=== PATIENT | female | born 1945 | race Caucasian/White ===

== ENCOUNTER 2018-05-17 05:04 | Emergency (ER) | payer MEDICARE, OTHER ==
[2018-05-17] MEDS ORDERED: Acetaminophen 500 MG TAB ONE (05:33)
[2018-05-17] MEDS ORDERED: Ibuprofen 200 MG TAB ONE (05:33)
[2018-05-17 05:52] LABS: Clarity Cloudy (Clear)
[2018-05-17 05:53] LABS: Bilirubin Small (Negative); Blood, Urine Moderate (Negative); Glucose, Urine (Dipstick) Negative (Negative); Leukocyte Trace (Negative); Nitrite Negative (Negative); Protein, Urine (Dipstick) 100 mg/dL (Neg-Trace); Specific Gravity, Urine 1.015 (1.005-1.030)
[2018-05-17 05:59] LABS: Bacteria/HPF 3+ HPF (None Seen); Squamous Epithelial 0-3 HPF (0-3)
[2018-05-17 06:06] LABS: ALT (SGPT) 82 U/L (8-55); AST (SGOT) 45 U/L (5-34); Alkaline Phosphatase 68 U/L (40-150); Anion Gap 15 mmol/L (10-20); BUN (Urea Nitrogen) 14 mg/dL (9.8-20.1); Bilirubin, Total 0.8 mg/dL (0.2-1.2); Calc. Creatinine Clearance 0 mL/min (70-130); Calcium 9.2 mg/dL (7.8-10.44); Carbon Dioxide 26 mmol/L (23-31); Chloride 98 mmol/L (98-107); Estimated GFR-MDRD 70; Globulin 3.4 g/dL (2.4-3.5); Glucose 131 mg/dL (83-110); Lipase 37 U/L (8-78); Potassium 3.8 mmol/L (3.5-5.1); Protein, Total 7.4 g/dL (6.0-8.3); Sodium 135 mmol/L (136-145)
[2018-05-17 06:09] LABS: Hemoglobin 13.9 g/dL (12.0-16.0); Mean Corpuscular HGB CONC 32.9 g/dL (32.0-36.0); Mean Corpuscular Hemoglobin 31.1 pg (27.0-31.0); Mean Corpuscular Volume 94.4 fL (78.0-98.0); Mean Platelet Volume 7.2 fL (7.4-10.4); Platelet Count 186 thou/uL (130-400); RBC Distribution Width 12.8 % (11.5-14.5); Red Blood Cell (RBC) Count 4.47 mill/uL (4.20-5.40); White Blood Cell (WBC) Count 4.1 thou/uL (4.8-10.8)
[2018-05-17 06:13] LABS: Band 7 % (5-11); Eosinophils 1 % (0-10); Lymphocytes 15 % (21-51); MDiff Complete? YES; Monocytes 13 % (0-10); Neutrophil 64 % (42-75)
[2018-05-17 06:31] LABS: MONO NEGATIVE CONTROL ZONE White (Negative) (White); MONO POSITIVE CONTROL Pink Line (Positive) (PINK/RED); Mononucleosis NEGATIVE (NEGATIVE)
[2018-05-17] MEDS ORDERED: Ondansetron ODT 4 MG TAB ONE (07:35)
[2018-05-17] MEDS ORDERED: Nitrofurantoin Monohyd/M-Cryst 100 MG CAP ONE (07:50)
--- NOTE | 2018-05-17 09:28 | CT ---
PRELIMINARY REPORT/[facility]/EMERGENTY AFTER-HOURS PROCEDURE CT Maxillofacial Without Intravenous Contrast EXAM DATE/TIME: 05/17/2018 7:01 AM CLINICAL HISTORY: 73 years old, female; Signs and symptoms; Fever and sinusitis; Chronic; Patient HX: STONE, pain, fever TECHNIQUE: Axial computed tomography images of the face without intravenous contrast. All CT scans at this facility use at least one of these dose optimization techniques: automated expos ure control; mA and/or kV adjustment per patient size (includes targeted exams where dose is matched to clinical indication); or iterative reconstruction. COMPARISON: No relevant prior studies available. FINDINGS: Bones/joints: No acute fracture. Soft tissues: Mild retrolisthesis of C4 over C5 is seen. Orbits: No acute intraorbital abnormality. Globes are unremarkable Sinuses: Opacification of the left maxillary sinus is seen. Mild mucosal thickening is seen in the et hmoid air cells. Dental: Mild periapical lucency around the left maxillary third and second molar teeth likely represe nts periapical abscesses. IMPRESSION: 1. No acute findings. 2. Mild retrolisthesis of C4 over C5. 3. Opacification of the left maxillary sinus. Nonspecific mucosal thickening in the ethmoid air cells . 4. Mild periapical lucency around the left maxillary third and second molar teeth likely represents p eriapical abscesses. Thank you for allowing us to participate in the care of your patient. Dictated and Authenticated by: Park Rojas MD 05/17/2018 7:58 AM Central Time ([place] & [place]) CT OF THE FACIAL BONE: Date: 05/17/[address] of the face was performed for fever and headaches. Axial slices were acquired, and coronal and sagittal reconstructions were done. FINDINGS: There is nearly complete opacification of the left maxillary sinus consistent with sinusitis. Some ve ry minor mucosal thickening is seen in the floor of the right maxillary sinus. The other paranasal si nuses are clear. The mastoid air cells are clear. No fractures or other acute facial abnormalities we re seen. Nasal septum is midline. The retroorbital areas appear normal. Much of the cervical spine is shown on the lower slices of the study. There are severe degenerative c hanges, particularly beginning at the C3-C4 level and below with disc space narrowing at multiple lev els and bilateral foraminal stenosis at multiple levels. IMPRESSION: 1. Opacified left maxillary sinus consistent with sinusitis. 2. Severe multilevel degenerative changes in the cervical spine. POS: HOME
--- NOTE | 2018-05-17 09:30 | RAD ---
CHEST 2 VIEWS: Date: 05/17/18 Comparison made with an 08/01/16 study done at [facility]. FINDINGS: The heart is normal in size. The lungs are clear. There is no sign of pneumonia or pleural effusion. No pulmonary masses seen. The mediastinum appears normal. One of the lower thoracic vertebra shows so me slight wedging of its superior end plate. IMPRESSION: No acute thoracic findings. POS: HOME
--- NOTE | 2018-05-17 09:46 | RAD ---
SINUSES 1 VIEW: Date: 05/17/18 A single Epstein view is presented. There is complete opacification of the left maxillary sinus. In th e absence of trauma, I would presume sinusitis. No fractures are seen. The other paranasal sinuses se em clear. IMPRESSION: Opacified left maxillary sinus. POS: HOME
== END 2018-05-17 08:35 | disposition home or self-care (01) ==
LOC: BURERS 05:04
DX: J01.90 Acute sinusitis, unspecified (principal); N39.0 Urinary tract infection, site not specified; G43.909 Migraine, unspecified, not intractable, without status migrainosus; Z79.899 Other long term (current) drug therapy
CPT/HCPCS: 36415; 70210; 70486; 71046; 80053; 81003; 81015; 83605; 83690; 85025; 86308; 87040; 87086; 87804; 94760; Q0162